=== PATIENT | female | born 1980 | race Caucasian/White ===

== ENCOUNTER 2020-07-26 13:25 | Inpatient (IN) | payer BC, OTHER ==
[2020-07-26 14:08] LABS: BASO % 0.2 % (0-2.0); HEMATOCRIT 33.2 % (32.4-45.2); HEMOGLOBIN 11.5 GM/dL (10.7-15.3); LYMPH % 12.6 % (8-40); MCH 30.8 pg (25.7-33.7); MCHC 34.7 g/dl (32.0-36.0); MEAN CELL VOLUME 88.8 fl (80-96); MEAN PLT VOLUME 8.7 fl (7.5-11.1); MONO % 6.4 % (3.8-10.2); NEUT % 78.8 % (42.8-82.8); PLATELET COUNT 183 K/MM3 (134-434); RBC 3.73 M/mm3 (3.60-5.2); RDW 13.3 % (11.6-15.6); WHITE BLOOD COUNT 12.5 K/mm3 (4.0-10.0)
[2020-07-26 14:18] LABS: INR 0.97 (0.83-1.09); PROTHROMBIN TIME (PATIENT) 11.4 SEC (9.7-13.0)
[2020-07-26 14:38] LABS: BLOOD UREA NITROGEN 7.9 mg/dL (7-18); CALCIUM 9.5 mg/dL (8.5-10.1); CREATININE 0.6 mg/dL (0.55-1.3); POTASSIUM 4.4 mmol/L (3.5-5.1); URIC ACID 4.2 mg/dL (2.6-7.2)
[2020-07-26 15:33] VITALS: BMI 42.0
[2020-07-26] MEDS ORDERED: ELECTROLYTE-148 SOLN 1,000 ML IV SCH (20:00)
[2020-07-26] MEDS ORDERED: CITRIC ACID/SODIUM CITRATE 30 ML UNIT-DOSE CUP PO ONE (20:02)
[2020-07-26] MEDS ORDERED: ELECTROLYTE-148 SOLN 500 ML IV ONE (20:02)
[2020-07-26] MEDS ORDERED: ACETAMINOPHEN 500 MG TABLET (FP) ONE ×2 (20:03→20:05)
--- NOTE | 2020-07-26 20:10 | HP ---
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: Alzheimer's, CVA, Dementia, Migraine, Multiple Sclerosis, Peripheral Neuropathy, Parkinson's, Seizure, Syncope, TIA, Vertigo, Other Cardiovascular: No: AFIB, Aneurysm, Aortic Insufficiency, Aortic Stenosis, CAD, CHF, Deep Vein Thrombosis, HTN, Hyperlipdemia, SC, Mitral Insufficiency, Mitral Stenosis, Murmur, Pulmonary Hypertension, Other Pulmonary: No: Asthma, Bronchitis, Cancer, COPD, O2 Dependent, Pneumonia, Previously Intubated, Pulmonary Embolus, Pulmonary Fibrosis, Sleep Apnea, Other Gastrointestinal: No: Ascites, Cancer, Constipation, Crohn's Disease, Diverticulitis, Diverticulosis, Esophageal Varices, Gastritis, GERD, GI Bleed, Hemorrhoids, Hiatal Hernia, Inflamatory Bowel Disease, Irritable Bowel Disease, Pancreatitis, Peptic Ulcer Disease, Ulcerative Colitis, Other Hepatobiliary: No: Cirrhosis, Cholelithiasis, Cholecystitis, Choledocholithiasis, Hepatitis A, Hepatitis B, Hepatitis C, Other Renal/: No: Renal Failure, Renal Inusuff, BPH, Cancer, Hematuria, Hemodial ysis, Neurogenic Bladder, Renal Calculi, UTI, Other Reproductive: No: Ectopic , Endometriosis, Fibroids, PID, Polycystic Ovary Syndrome, Postmenopausal, Other ...: 3 ...Para: 1 ...Term: 1 ...: 0 ...Spon : 1 ...Living Children: 1 ...Multiple Gestation: 0 ...EDC by Sono: 08/18/20 Heme/Onc: No: Anemia, B12 Deficiency, Bleeding Disorder, Cancer, Current Chemotherapy, Current Radiation Therapy, Hemochromatosis, Hypercoaguable State, Myeloproliferative Synd, Sickle Cell Disease, Sickle Cell Trait, Thrombocytopenia, Other Infectious Disease: No: AIDS, C-Diff, Herpes Zoster, HIV, MRSA, STD's, Tu berculosis, VREF, Other Psych: No: Addictions, Anxiety, Bipolar, Depression, Panic, Psychosis, Schizophrenia, Other Musculoskeletal: No: Bursitis, Chronic low back pain, Hemiparesis, Hemiplegia, Osteoarthritis, Paraplegia, Other Rheumatology: No: Fibromyalgia, Gout, Lupus, Rheumatoid Arthritis, Sarcoidosis, Vasculitis, Other ENT: No: Allergic Rhinitis, Sinusitis, Other Endocrine: No: Blake's Disease, [place]'s Disease, Diabetes Insipidus, Diabetes Mellitus, Hyperparathyroidism, Hyperthyroidism, Hypothyroidism, Osteopenia, SIADH, Other Dermatology: No: Basal Cell, Cellulitis, Eczema, Melanoma, Psoriasis, Squamous Cell, Other - Past Surgical History Past Surgical History: No: None, AAA Repair, AICD, Amputation, Appendectomy, Arthrosocopy, AV Fistula/Graft, Bariatric Surgery, Breast Biopsy, Bypass, CABG, Carotid Endarterectomy, Cataract Removal, Cholecystectomy, Colectomy, Colonoscopy, Colostomy, Craniotomy, , Cystectomy, Hernia Repair, Hysterectomy, Ileal Conduit, Ileosotomy, Joint Replacement, Kidney Transplant, Laminectomy, Liver Transplant, Mastectomy, Nephrectomy, Oopherectomy, Orc hiectomy, Permanent Pacemaker, Prostatectomy, Splenectomy, Stent, Thoracotomy, TURP, Tonsillectomy, Tubal Ligation, Upper Endoscopy, Valve Replacement, Vasectomy, Vein Stripping/Ligation Hx Myomectomy: No Hx Transabdominal Cerclage: No - Advance Directives Advance Directives: Yes: Living Will - Smoking History Smoking history: Never smoked Have you smoked in the past 12 months: No - Alcohol/Substance Use Hx Alcohol Use: No History of Substance Use: reports: None - Social History Usual Living Arrangement: Yes: With Significant Other Do you think of yourself as: Straight/Heterosexual ADL: Independent History of Recent Travel: No Home Medications - Allergies Allergies/Adverse Reactions: Allergies Allergy/AdvReac Type Severity Reaction Status Date / Time No Known Allergies Allergy Verified 07/26/20 15:07 - Home Medications Home Medications: Ambulatory Orders Labetalol HCl [Normodyne -] 200 mg PO BID 07/26/20 Pnv No.95/Ferrous Fum/Folic AC [ Caplet] 1 each PO DAILY 07/26/20 Family Medical History Family History: Denies Review of Systems - Review of Systems Constitutional: reports: No Symptoms Eyes: reports: No Symptoms HENT: reports: No Symptoms Neck: reports: No Symptoms Cardiovascular: reports: No Symptoms Respiratory: reports: No Symptoms Gastrointestinal: reports: No Symptoms Genitourinary: reports: No Symptoms Breasts: reports: No Symptoms Reported Musculoskeletal: reports: No Symptoms Integumentary: reports: No Symptoms Neurological: reports: No Symptoms Endocrine: reports: No Symptoms Hematology/Lymphatic: reports: No Symptoms Psychiatric: reports: No Symptoms Physical Exam - Maternity Vital Signs: Vital Signs Temperature 98.5 F 07/26/20 15:20 Pulse Rate 97 H 07/26/20 17:00 Respiratory Rate 07/26/20 17:00 Blood Pressure 127/81 07/26/20 17:00 O2 Sat by Pulse Oximetry (%) 100 07/26/20 17:00 Constitutional: Yes: Well Nourished, No Distress, Calm Eyes: Yes: WNL, Conjunctiva Clear, EOM Intact HENT: Yes: WNL, Atraumatic, Normocephalic Neck: Yes: WNL, Supple, Trachea Midline Cardiovascular: Yes: WNL, Regular Rate and Rhythm Lungs: Clear to auscultation Breast(s): Yes: WNL - Abdominal Exam/OB Number of Fetuses: Single Presentation: Vertex Contractions: Yes Regularity: Regular Intensity: Moderate Monitor Mode: External Heart Rate (range): 150 Heart Rate Location: [facility] Category: I Accelerations: Uniform Decelerations: None - Vaginal Exam/OB Vaginal Bleeding: No Speculum Exam: No Presentation: Vertex/Position Station: -2 - Physical Exam Musculoskeletal: Yes: WNL Extremities: Yes: WNL Edema: Yes Edema: LUE: 1+, RUE: 1+, LLE: 1+, RLE: 1+ Integumentary: Yes: WNL Deep Tendon Reflex Grade: Normal +2 ...Motor Strength: WNL Psychiatric: Yes: WNL, Alert, Oriented - Labs Lab Results: CBC, BMP 07/26/20 13:50 07/26/20 13:50 Hemorrhage Risk Assessment - Risk Factors Medium Risk Factors: Yes: None High Risk Factors: Yes: None Risk Score: 1 Risk Level: Medium Risk Assessment/Plan: pre elampsia Assessment/Plan for c s pre eclampsia , pt was on labetolol, pt c o severe headahe today, and having contractions q 5 min, pt is unconfortable
[2020-07-26] MEDS ORDERED: ACETAMINOPHEN 500 MG TABLET (FP) PO ONE (20:15)
[2020-07-26] MEDS ORDERED: ONDANSETRON 4 MG/2 ML VIAL IVPUSH PRN (20:16)
[2020-07-26] MEDS ORDERED: morphine SULFATE/PF 0.5 MG/ML (2cc Syringe - QUVA) ONE (21:02)
[2020-07-26] MEDS ORDERED: OXYTOCIN 10 UNITS/ML VIAL ONE ×4 (21:31→21:52)
[2020-07-26] MEDS ORDERED: ceFAZolin SODIUM 1 GM VIAL ONE ×2 (21:31)
[2020-07-26] MEDS ORDERED: oxyCODONE HCL 5 MG TABLET PO PRN ×2 (22:29)
[2020-07-26] MEDS ORDERED: IBUPROFEN 600 MG TABLET (FP) PO PRN (22:29)
[2020-07-26] MEDS ORDERED: ACETAMINOPHEN 325 MG TABLET (FP) PO PRN (22:29)
[2020-07-26] MEDS ORDERED: METHYLERGONOVINE MALEATE 0.2 MG/1 ML AMP IM PRN (22:29)
[2020-07-26] MEDS ORDERED: OXYTOCIN 20 UNITS in 0.9% NS 20 UNIT/1,000 ML INFUS.BAG IV SCH (22:30)
--- NOTE | 2020-07-26 22:43 | OP ---
Operative Note - Note: Operative Date: 07/26/20 Pre-Operative Diagnosis: pre eclampsia, hx of c s in labor Operation: repeat lt c s Findings: left tube only , no adhesion Post-Operative Diagnosis: Same as Pre-op Surgeon: Trev Ray Credit Card Analyst: Kaushal Caldera Anesthesiologist/DIRECTOR OF CLINICAL SERVICES: Michael Becerril Anesthesia: Spinal Estimated Blood Loss (mls): 800 (no complications ) Operative Report Dictated: Yes
[2020-07-26] MEDS: NIFEdipine E.R. 30 MG TABLET PO SCH ×2 (22:54→23:29)
[2020-07-26] MEDS: IBUPROFEN 800 MG/8 ML IJ IVPB PRN (22:56)
[2020-07-26] MEDS ORDERED: IBUPROFEN 800 MG/8 ML IJ IVPB ONE (23:15)
[2020-07-26] MEDS ORDERED: OXYTOCIN 20 UNITS in 0.9% NS 20 UNIT/1,000 ML INFUS.BAG IV ONE (23:15)
[2020-07-27] MEDS: IBUPROFEN 800 MG/8 ML IJ IVPB PRN (06:16)
[2020-07-27 07:52] LABS: BASO % 0.2 % (0-2.0); EOS % 0.9 % (0-4.5); HEMATOCRIT 28.4 % (32.4-45.2); HEMOGLOBIN 9.7 GM/dL (10.7-15.3); LYMPH % 11.9 % (8-40); MCH 30.1 pg (25.7-33.7); MCHC 34.2 g/dl (32.0-36.0); MONO % 6.6 % (3.8-10.2); NEUT % 80.4 % (42.8-82.8); PLATELET COUNT 161 K/MM3 (134-434); RBC 3.22 M/mm3 (3.60-5.2); RDW 13.3 % (11.6-15.6); WHITE BLOOD COUNT 11.4 K/mm3 (4.0-10.0)
--- NOTE | 2020-07-27 08:31 | PN ---
Progress Note (short form) - Note Progress Note: Anesthesia postop note 39 y/o F s/p spinal/duramorph for section. POD#1, vss, aaox3, pain well controlled, sensory motor intact distally No anesthesia complications.
[2020-07-27] MEDS: PRENATAL VITAMINS W/ FOLIC ACID TABLET (FP) PO SCH (09:53)
[2020-07-27] MEDS: LABETALOL HCL 200 MG TABLET (FP) PO SCH ×2 (09:54→22:01)
[2020-07-27] MEDS: NIFEdipine E.R. 30 MG TABLET PO SCH (09:55)
[2020-07-27] MEDS ORDERED: DIPHTH,PERTUSS(ACELL),TET 0.5 ML DISP.SYRIN IM ONE (10:00)
[2020-07-27] MEDS ORDERED: NIFEdipine E.R. 30 MG TABLET PO SCH (10:00)
[2020-07-27] MEDS: IBUPROFEN 600 MG TABLET (FP) PO PRN ×2 (14:02→20:30)
[2020-07-27] MEDS: ACETAMINOPHEN 325 MG TABLET (FP) PO PRN ×2 (14:02→20:29)
[2020-07-27] MEDS: SIMETHICONE 80 MG TAB.CHEW (FP) PO PRN ×2 (14:03→20:29)
[2020-07-27] MEDS: SENNOSIDES/DOCUSATE COMBO (SENNA PLUS) TABLET (UD) PO PRN (20:30)
[2020-07-27] MEDS ORDERED: BISACODYL 10 MG SUPP.RECT RC PRN (22:29)
[2020-07-28] MEDS: ACETAMINOPHEN 325 MG TABLET (FP) PO PRN ×3 (08:47→22:12)
[2020-07-28] MEDS: IBUPROFEN 600 MG TABLET (FP) PO PRN ×3 (08:48→22:11)
[2020-07-28] MEDS: SIMETHICONE 80 MG TAB.CHEW (FP) PO PRN ×3 (08:49→22:11)
[2020-07-28] MEDS: PRENATAL VITAMINS W/ FOLIC ACID TABLET (FP) PO SCH (09:50)
[2020-07-28] MEDS: NIFEdipine E.R. 30 MG TABLET PO SCH (09:51)
[2020-07-28] MEDS: LABETALOL HCL 200 MG TABLET (FP) PO SCH ×2 (09:51→22:11)
--- NOTE | 2020-07-28 13:35 | PN ---
Post Progress Note Post Day: 2 Type of Delivery: Repeat C/S Vital Signs: Vital Signs Temperature 98.2 F 07/28/20 09:00 Pulse Rate 91 H 07/28/20 09:00 Respiratory Rate 18 07/28/20 09:00 Blood Pressure 121/84 07/28/20 09:00 O2 Sat by Pulse Oximetry (%) 99 07/27/20 22:00 Breast Exam: Yes: Soft Uterus: Yes: Fundus Firm, Fundus below umbilicus Incision: Yes: Dressing dry and intact, Sutures intact Abdomen/GI: Yes: Abdomen soft, Passing flatus, Tolerating PO Lochia: Yes: Serosa Lochia, amount: Small Extremities: Yes: Calves non-tender Perineum: Yes: Intact (dc pt home today ) Activity: Ambulating - Labs Labs: CBC WBC 11.4 K/mm3 (4.0-10.0) H 07/27/20 06:48 RBC 3.22 M/mm3 (3.60-5.2) L 07/27/20 06:48 Hgb 9.7 GM/dL (10.7-15.3) L 07/27/20 06:48 Hct 28.4 % (32.4-45.2) L 07/27/20 06:48 MCV 88.0 fl (80-96) 07/27/20 06:48 MCH 30.1 pg (25.7-33.7) 07/27/20 06:48 MCHC 34.2 g/dl (32.0-36.0) 07/27/20 06:48 RDW 13.3 % (11.6-15.6) 07/27/20 06:48 Plt Count 161 K/MM3 (134-434) 07/27/20 06:48 MPV 9.0 fl (7.5-11.1) 07/27/20 06:48 Absolute Neuts (auto) 9.2 K/mm3 (1.5-8.0) H 07/27/20 06:48 Neutrophils % 80.4 % (42.8-82.8) 07/27/20 06:48 Lymphocytes % 11.9 % (8-40) 07/27/20 06:48 Monocytes % 6.6 % (3.8-10.2) 07/27/20 06:48 Eosinophils % 0.9 % (0-4.5) 07/27/20 06:48 Basophils % 0.2 % (0-2.0) 07/27/20 06:48 Nucleated RBC % 0 % (0-0) 07/27/20 06:48 Retic Count 2.30 % (0.5-1.5) H 07/26/20 13:50 Haptoglobin 197 mg/dL (33-278) 07/26/20 13:50
--- NOTE | 2020-07-28 13:39 | DS ---
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: Vital Signs Temperature 98.2 F 07/28/20 09:00 Pulse Rate 91 H 07/28/20 09:00 Respiratory Rate 18 07/28/20 09:00 Blood Pressure 121/84 07/28/20 09:00 O2 Sat by Pulse Oximetry (%) 99 07/27/20 22:00 Constitutional: Yes: Well Nourished, No Distress, Calm Eyes: Yes: WNL, Conjunctiva Clear, EOM Intact HENT: Yes: WNL, Atraumatic, Normocephalic Neck: Yes: WNL, Supple, Trachea Midline Cardiovascular: Yes: WNL, Regular Rate and Rhythm Respiratory: Yes: WNL, Regular, CTA Bilaterally Gastrointestinal: Yes: WNL, Normal Bowel Sounds, Soft ...Rectal Exam: Yes: WNL Renal/: Yes: WNL Pelvis: Yes: WNL External Genitalia: Yes: Normal Internal Exam Deferred: Yes Vaginal Exam: Yes: Normal Cervix: Yes: Normal Uterus: Yes: Normal Adnexa: Normal: Bilateral ....Post : Yes: Uterus firm, Uterus non-tender Breast(s): Yes: WNL Musculoskeletal: Yes: WNL Extremities: Yes: WNL Edema: Yes Integumentary: Yes: WNL Wound/Incision: Yes: Clean/Dry, Well Approximated Neurological: Yes: WNL, Alert, Oriented ...Motor Strength: WNL Psychiatric: Yes: WNL, Alert, Oriented Labs: CBC, BMP 07/27/20 06:48 07/26/20 13:50 Delivery - Delivery Section: Repeat Type of Anesthesia: Spinal Episiotomy/Laceration: None EBL (cc): 500 Delivery, Single - Stages of Labor Date of Delivery: 07/26/20 Time of Delivery: 21:25 Time Placenta Delivered: 21:26 - 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 Present: Yes Name: Jennifer Garcia Gender: Female Weight: 3.402 kg Position: Right, OA Total Hours ROM (Hrs/Mins): 2MIN - 1 Minute Total Score: 9 5 Minutes Total Score: 9 - [place] Feeding Plan Initial Plan: Exclusive throughout hospitalization Discharge Summary Problems reviewed: Yes Reason For Visit: FOR PRE-CLAMPSIA Procedures: Principal: repeat lt c s , Other Procedures: btl Hospital Course: uneventful , pre eclampsia Condition: Good - Instructions Diet, Activity, Other Instructions: Physical activity Resume your normal everyday activity as tolerated no heavy lifting or exercise until seen by your surgeon. You may walk unlimited berny of and climb stairs. You may resume driving the car when you feel safe and comfortable behind the wheel. No sexual activity as instructed. Wound care If you have a bandage, leave it on, and keep dry for 48-72 hours. After that time discard the outer bandage. If they are tapes on the skin under the out of bandage leave them in place. They will peel off in the next 7 to 10 days. Do Not Peel them off. You may shower the day after surgery. If there are tapes present on the skin, you may shower over them. Diet There are no dietary restrictions. Eat healthy, high-fiber foods. Drink 6 to 8 glasses of liquid each day. This will assist in keeping your bowels are regular. Pain management You may take Tylenol or acetaminophen or Ibuprofen (for example, Motrin, Advil etc.) from my pain prescription medication is ordered should be taken as pre scribed for moderate to severe pain. Call MD for any of the following: call dr sal for 2 weeks appoint Severe pain not relieved by medication Fever of 101 or higher Excessive bleeding or drainage on dressing Inability to urinate Disposition: HOME - Home Medications Comprehensive Discharge Medication List: Ambulatory Orders Labetalol HCl [Normodyne -] 200 mg PO BID 07/26/20 Pnv No.95/Ferrous Fum/Folic AC [ Caplet] 1 each PO DAILY 07/26/20 Prescription Drug Monitoring Program (I-STOP) results: I-STOP reviewed and no issues identified
[2020-07-28] MEDS: SENNOSIDES/DOCUSATE COMBO (SENNA PLUS) TABLET (UD) PO PRN (22:11)
[2020-07-28 22:58] VITALS: BP 122/77; PULSE 87; TEMP 98.7
[2020-07-29] MEDS: ACETAMINOPHEN 325 MG TABLET (FP) PO PRN (06:39)
[2020-07-29] MEDS: IBUPROFEN 600 MG TABLET (FP) PO PRN (06:40)
[2020-07-29] MEDS: SIMETHICONE 80 MG TAB.CHEW (FP) PO PRN (06:40)
[2020-07-29] MEDS: PRENATAL VITAMINS W/ FOLIC ACID TABLET (FP) PO SCH (09:23)
[2020-07-29] MEDS: LABETALOL HCL 200 MG TABLET (FP) PO SCH (09:24)
[2020-07-29] MEDS: NIFEdipine E.R. 30 MG TABLET PO SCH (09:24)
--- NOTE | 2020-07-31 09:30 | OP ---
DATE OF OPERATION: 07/26/2020 PREOPERATIVE DIAGNOSIS: Preeclampsia and history of section in labor, voluntary sterilization. POSTOPERATIVE DIAGNOSIS: Preeclampsia and history of section in labor, voluntary sterilization. PROCEDURE: Repeat low transverse section, unilateral left side tubal ligation. FINDINGS: Only left tube and no adhesion. SURGEON: Trev Ray MD TRANSFORMATION CONSULTANT: FRANCOIS Reynoso ANESTHESIOLOGIST: Michael Becerril MD ANESTHESIA: Spinal. BLOOD LOSS: About 800 mL. INDICATIONS: This is a 39-year-old female patient, has a previous history of low transverse section. Patient has been followed up with mild preeclampsia since about 35-1/2 weeks. 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 Therefore, the blood pressure ever since about 35 weeks which has been increasing, 145-150 range. So patient because of prematurity labetalol blood pressure pill was given to the patient 200 mg hopefully to keep the baby until 37 weeks before the . So, patient finally made it to 37 weeks today. The blood pressure today is 155/100 in the office. However, patient complained of severe headache and patient also having contraction every 5 minutes. Headache was not relieved by the Tylenol. So, with the above indication because of preeclampsia and the blood pressure and the history of previous in labor, the patient was taken to the OR for at 37 weeks. At this time there was no surgical services assistant available, no physician available, so FRANCOIS Caldera was called in. PROCEDURE: So, patient was placed on the operating table in the supine position after spinal anesthesia was obtained. The patient's abdomen and pelvis were prepped and draped in the usual sterile manner. Pfannenstiel incision was made. Incision was made through skin, subcutaneous tissue until the fascia was nicked in the midline. The fascia extended bilaterally. The intraperitoneal cavity was entered. No adhesion was encountered. Low transverse segment was entered. Baby delivered from the LOP position. Baby was handed over to fabric pattern grader after umbilical cord doubly clamped and cut. No cord blood gas obtained. Placenta was removed. Uterus closed in single layer, first layer interlocking Vicryl sutures. Good hemostasis. Both gutters cleaned. Uterus was within normal limits and there was no right tube seen because the patient had ectopic before and there was a left tube. Patient requested a tubal ligation. So, at this time isthmus and fallopian tube were grasped with Ragini, doubly transected and suture ligated. Good hemostasis. Both ends were coagulated with Bovie. Good hemostasis. No complications. Both gutters were cleaned. The patient tolerated procedure well and draining clear urine. Blood loss was 800 mL. The peritoneum was closed. The fascia was closed. Skin was closed. Transferred to recovery room in stable condition. MD KYM [id number]
--- NOTE | 2020-08-03 17:22 | PATH ---
Surgical Pathology Report Patient Name: MARIAN MERAZ [facility]. Rec. 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 PLACENTA: THIRD TRIMESTER PLACENTA WITH FOCAL INFARCTION (1 CM IN GREATEST DIMENSION) AND FOCALLY INCREASED PERIVILLOUS FIBRIN DEPOSITION. TRIVASCULAR CORD. MEMBRANES WITH NO DIAGNOSTIC ABNORMALITIES. B. PORTION OF LEFT FALLOPIAN TUBE, RESECTION: PORTION OF FALLOPIAN TUBE WITH NO SIGNIFICANT PATHOLOGIC CHANGE. COMPLETE CROSS SECTION OF THE FALLOPIAN TUBE LUMEN IDENTIFIED. Electronically Signed Kalli Gibson M.D. Gross Description A. The specimen is received fresh labeled placenta and is a 445 gram, 20.0 x 15.5 x 2.4 cm. placenta with attached membranes and umbilical cord. The attached membranes are mcgee, translucent with focal opacities and insert marginally. The umbilical cord measures 37 cm. in length and averages 1.3 cm. in diameter. The cord inserts eccentrically, 5.5 cm. to the nearest margin. No true knots or strictures are identified. Cut surface of the umbilical cord reveals 3 vessels. The surface is johnson-blue with minimal fibrin deposition and appropriate caliber vessels. The maternal surface is red-brown with focal defects. Sectioning reveals a 0.8 cm greatest dimension hemorrhagic intraparenchymal lesion. The remaining placental parenchyma is red-brown and spongy. Senior Systems Architect sections are submitted in three cassettes as follows: 1-membrane roll and umbilical cord; 2-lesion; 8-[id number] section of placenta. B. Received in formalin labeled "portion of fallopian tube left," is a 1.3 cm in length portion of fallopian tube. No fimbria are present. The outer surface is mcgee-norman and smooth. Sectioning reveals an unremarkable lumen. Senior Systems Architect sections are submitted in one cassette. 07/31/2020 saudi07/31/2020
== END 2020-07-29 10:30 | disposition home or self-care (01) | DRG 785 ==
LOC: JLDR 13:25 → J3W 23:40
PROVIDERS: ADMIT Obstetrics & Gynecology; ATTEND Obstetrics & Gynecology
PROC: 10D00Z1 Extraction of Products of Conception, Low, Open Approach (ICD-10-PCS; principal; 2020-07-26)
PROC: 0UL60ZZ Occlusion of Left Fallopian Tube, Open Approach (ICD-10-PCS; 2020-07-26)
DX: O14.04 Mild to moderate pre-eclampsia, complicating childbirth (principal); O34.211 Maternal care for low transverse scar from previous cesarean delivery; O60.14X0 Preterm labor third trimester with preterm delivery third trimester, not applicable or unspecified; Z3A.36 36 weeks gestation of pregnancy; Z37.0 Single live birth; Z90.79 Acquired absence of other genital organ(s); Z30.2 Encounter for sterilization
CPT/HCPCS: 36415; 80048; 82977; 83010; 84450; 84460; 84550; 85025; 85045; 85610; 85730; 86780; 86850; 86900; 86901; 87389; 88302-TC; 88307-TC; 90715; U0003